=== PATIENT | male | born 1965 | race Caucasian/White ===

== ENCOUNTER 2018-08-24 21:23 | Inpatient (IN) | payer OTHER ==
[~2018-08-24] VITALS: Ht 167.6 cm; Wt 115.2 kg
--- NOTE | ~2018-08-24 | O ---
[facility] [place] [address] OPERATIVE REPORT Name: REINA ANDERS ALAN Room #: 354-P ADM IN M.R.#: [id number] Admission: 08/25/18 Attend Phys: Aaron Danielle MD Discharge: Date of : 61 Report #: [id number] THIS REPORT FOR: //name// CC: Aaron Hogan DATE OF SERVICE: 08/30/2018 PREOPERATIVE DIAGNOSIS: Deep cervical neck abscess. POSTOPERATIVE DIAGNOSIS: Deep cervical neck abscess. PROCEDURE: Incision, drainage and debridement of left neck abscess. SURGEON: Josh Hogan M.D. ANESTHESIA: Monitored anesthesia care, 14 mL of 1% with 1:100,000 epinephrine. FINDINGS: CEDRIC drains were with minimal purulence present. Only slight amount of devitalized tissue was noted mostly in the subplatysmal plane and a small piece over the SCM. There is no purulence noted within the abscess cavity themselves and there was good evidence of granulation tissue forming over strap muscles and superficial portions of the wound. TECHNIQUE: After obtaining consent, he was brought back to the operative suite. Appropriate time-out was performed. Local monitored anesthesia care was then obtained. The above local anesthetic was infiltrated subcutaneously and then submuscularly during the case for patient tolerance. After prepping and draping the neck sterilely, I first removed the sutures and clipped the drain stitches and removed the drains. The wound easily opened with the application of a hemostat. Using a large curved hemostat, the submandibular space medial to the submandibular gland was probed both with the hemostat and finger and then I followed down the tracheoesophageal groove inferiorly. I also explored the previous pockets noted more so the platysmal area inferiorly and laterally. No new pockets were appreciated. A slightly bleeding tissue was encountered in these areas as well. There was some devitalized tissue over the above-mentioned areas, which was trimmed out and back to bleeding tissue with sharp scissors. I then thoroughly irrigated the wound with 500 mL of bacitracin. I reinspected the area for any further devitalized tissue, none was found. Having felt we had adequately explored the neck area, I then placed a 1-inch Marco, layering it up underneath the submandibular gland superiorly and down the tracheoesophageal groove inferiorly and rolled it back laterally and superficially subplatysmal bring it out medially. This was secured to the skin with two 4-0 nylon sutures. I then closed the subplatysmal layer with simple interrupted 3-0 chromic suture somewhat loosely and then closed the skin with a 4-0 black nylon simple [address] [address] OPERATIVE REPORT Name: REINA ANDERS Room #: 354-P [facility] IN M.R.#: [id number] Admission: 08/25/18 Attend Phys: Aaron Danielle MD Discharge: Date of : 61 Report #: [id number] interrupted. Antibiotic ointment was applied to the skin followed by ABD and a dressing. He was then taken to recovery in stable condition. Estimated blood loss was about 5 mL. By: 1221 [id number] Josh Hogan MD /nt
[~2018-08-24 21:23] MED LIST: KEFLEX500 M1 PO
[2018-08-24 21:27] VITALS: BP 151/70
[2018-08-24] MEDS ORDERED: NEURONTIN 400400 M1 PO (21:46)
[2018-08-24] MEDS ORDERED: IBUPROFEN 800800 M1 PO (21:47)
[2018-08-24] MEDS ORDERED: ZOCOR40 MG PO (21:48)
[2018-08-24 21:51] LABS: HEMATOCRIT 48.8 % (42.0-52.0); HEMOGLOBIN 17.1 gm/dL (14.0-18.0); MCH 35.2 pg (26.0-34.0); MCV 100.5 fL (80.0-100.0); PLATELET COUNT 242 thou/uL (150-400); RBC 4.85 mil/uL (4.50-6.00); RDW 12.7 % (10.5-14.5); WBC 24.1 thou/uL (4.0-11.0)
[2018-08-24 21:58] LABS: CALCIUM 9.1 mg/dL (8.5-10.1); POTASSIUM 3.6 mmol/L (3.5-5.1)
[2018-08-25] VITALS (24 sets, daily range): BP systolic 117–154; BP diastolic 53–83
[2018-08-25] MEDS ORDERED: NORCO 10-325 T1 EACH PO (04:30)
[2018-08-25] MEDS ORDERED: OXYCONTIN10 M1 PO (04:32)
[2018-08-25] MEDS ORDERED: ACCUPRIL5 MG PO (04:35)
--- NOTE | 2018-08-25 07:00 | NUR ---
ARRIVED IN ICU FROM ER AT APPROX 0300. PRIOR TO ARRIVAL, ORDERS RECEIVED FROM DR. KERNS, WHO SAW PT IN ER-ORDERS ENTERED AND SEE [facility] MESSAGE REGARDING OTHER GUIDELINES FOR PT'S CARE/SAFETY. PT C/O OF 10/10 PAIN IN HIS NECK AND BACK UPON ARRIVAL IN THE ICU. NO PAIN MEDICATION HAD BEEN ORDERED. ANISH CUBA NP CONTACTED FOR AN ORDER FOR PAIN MEDICATION. ORDER RECEIVED FOR 50 MCG FENTANYL Q4H PRN. ONE DOSE GIVEN TO PT, PT REPLIED 'KIND OF' WHEN ASKED IF FENTANYL WAS EFFECTIVE AND DRIFTED OFF TO SLEEP. PT WOKE 15 MINUTES LATER, C/O 10/10 PAIN AGAIN AND SAID HE DID NOT REMEMBER THE PAIN MEDICATION WORKING. HAND BOX FOLDER CALLED AGAIN TO ASK FOR CHANGE IN PAIN MEDICATION. MORPHINE 4 MG Q4H PRN ORDERED AND FENTANYL D/C. ONE DOSE OF MORPHINE GIVEN AT 0500. PT REPORTED 8/10 PAIN 15 MINUTES AFTER ADMIN AND THEN FELL ASLEEP. PT SLEPT UNTIL LAB CAME TO DRAW LABS SHORTLY BEFORE SHIFT CHANGE. ASSESSMENT AND VITALS DOCUMENTED. WILL CONTINUE TO MONITOR.
[2018-08-25 07:12] LABS: HEMATOCRIT 48.1 % (42.0-52.0); HEMOGLOBIN 16.2 gm/dL (14.0-18.0); MCHC 33.6 g/dL (28.0-37.0); MCV 101.1 fL (80.0-100.0); RBC 4.76 mil/uL (4.50-6.00); RDW 12.7 % (10.5-14.5)
[2018-08-25 07:20] LABS: CALCIUM 8.8 mg/dL (8.5-10.1); CREATININE 0.8 mg/dL (0.7-1.3); POTASSIUM 4.3 mmol/L (3.5-5.1)
[2018-08-25 07:26] LABS: WBC 23.5 thou/uL (4.0-11.0)
--- NOTE | 2018-08-25 08:38 | NUR ---
Assess due to RD consult received. Admitted with jaw swelling, throat pain, supraglottitis. Started on abx, dexamethasone, IVF. Hx dm, htn, hld and extreme class III obesity with BMI 41. +tobacco use. Currently npo status. BG elevated >200. Follow for timely diet advance, recommend carb controlled diet. Otherwise low nutrition risk
--- NOTE | 2018-08-25 17:46 | HC ---
[facility] [place] [address] CONSULTATION Name: REINA ANDERS Room #: 245-P [facility] IN M.R.#: [id number] Admission: 08/25/18 Attend Phys: Aaron Danielle MD Discharge: Date of : 61 Report #: [id number] THIS REPORT FOR: //name// CC: Aaron Hogan DATE OF SERVICE: 08/25/2018 REASON FOR CONSULTATION: Swelling and throat. HISTORY OF PRESENT ILLNESS: The patient is a 52-year-old male who presented to emergency room on 08/24 in the evening with a complaint of increasing sore throat. The patient originally had noted that he had a jagged right mandibular tooth that irritated his tongue late last week or early this week and caused a sore on his tongue. He noted that, that is not worsened, but has not healed. Early this week, he believes on Wednesday, he went to urgent care because he was developing a sore throat and was diagnosed with a "sinus infection and thrush." He was given an unknown type of antibiotic. The patient has taken the medication, but he has noted that the soreness in the throat has increased and he has noted hoarseness or raspiness to his voice developing within the last 24 hours. Sore throat is at the point where it is difficult for him to swallow, although not impossible. He may or may not have had a fever or chills in the last day. The patient denied either digestive or pulmonary complaints. While in the emergency room, he was evaluated. CT scan of the neck was performed. There was concern of a possible abscess and/or swelling on the CT scan. We were consulted. I reviewed the CAT scans myself and with Dr. Devon Hughes from radiology the phone. Since being in the emergency room, the patient has received a dose of IV antibiotics and IV steroids. PAST MEDICAL HISTORY: Notable for morbid obesity, history of sleep apnea, for which he does not wear a device. He has a history of essential hypertension, hypercholesterolemia. He has had multiple back surgeries and has chronic back pain. MEDICATIONS: Include gabapentin, ibuprofen, simvastatin and ANJELICA inhibitor for kidney protection, OxyContin and Tylenol No. 3. ALLERGIES: He has no known allergies to medications. SOCIAL HISTORY: Negative for any use of tobacco products. REVIEW OF SYSTEMS: Negative for any other ENT complaints. No sinonasal complaints ear complaints or other neck complaints. PHYSICAL EXAMINATION: [address] [address] CONSULTATION Name: REINA ANDERS Room #: 245-P [facility] IN .R.#: [id number] Admission: 08/25/18 Attend Phys: Aaron Danielle MD Discharge: Date of : 61 Report #: [id number] GENERAL: He was examined in the ER suite. He had been noted to ambulate to the bathroom and back without difficulty. He is obese. He was sitting in the gurney. Voice is hoarse, but not hoarse. He is able to carry on a conversation without any dyspnea. VITAL SIGNS: He is mildly tachycardic. Blood pressure 151/70, temperature of 37.2. HEENT: Examination of the nares was unremarkable. There is no mucopurulence. Nasal mucosa without any erythema. Oral cavity shows a few missing teeth. There are no substantial lesions on the tongue. There is no swelling of the tongue. The floor of mouth is soft and without any edema. Soft palate appears unremarkable without any palatal edema. Posterior pharyngeal doll appear normal. Palpation of the neck reveals some generalized tenderness to the mid portion of the neck, slightly more on the left than the right. This generalized tenderness exists in area between hyoid and the mid thyroid cartilage and midline. There is no palpable lymphadenopathy, although it is difficult to address lymphadenopathy in this gentleman's thickened neck. There is no fluctuance. There is no subcutaneous emphysema. Flexible nasopharyngoscopy was performed after applying topical anesthesia to the right naris. The flexible scope was advanced back into the nares and nasopharynx, oropharynx and hypopharynx. Examination of the nares is as noted above. The nasopharynx is unremarkable. There is no erythema or edema noted. Immediate oropharyngeal mucosa was unremarkable. Within the hypopharynx, there is noted to be a very edematous epiglottis and the vallecula. There was moderate edema as well. This edema obscures some of the piriform sinuses on both sides and certainly the lateral pharyngeal doll are not well visualized. There was no erythema noted. The postcricoid area shows some mild edema; however, the glottis was visualized. Cords appear to be working normally. Most of the edema is localized to the preoperative glottic space; however, the base of tongue appeared unremarkable. There was no unilateral or asymmetric mass effect noted. The patient was able control of secretions well. Scope was withdrawn. It should be noted no ulcerations or masses were noted on examination. LABORATORY DATA: [place] [id number]. Cultures are presently pending. IMAGING DATA: I discussed the CT scan findings with Dr. Hughes as far as the presentation of the patient along with the physical exam findings. ASSESSMENT: History of upper airway infection with increasing swelling in the supraglottic region. I am most concerned that this may represent infectious supraglottitis. I find the presentation unusual for any type of an abscess formation and the location for possible abscess would be unusual. I recommended treating this initially supraglottitis with IV antibiotics, IV steroids, close watch of his airway with humidified air being applied. At this point, the [facility] [address] [place] [address] CONSULTATION Name: REINA ANDERS ALAN Room #: 245-P ADM IN .R.#: [id number] Admission: 08/25/18 Attend Phys: Aaron Danielle MD Discharge: Date of : 61 Report #: [id number] patient has good control of his airway. He is able to carry on a conversation without any dyspnea and there is a patency to his airway on direct visual examination. I explained these findings to the patient and my concerns. My recommendation is ICU evaluation. Continue the above treatment plan with reevaluation. If his presentation worsens as far as airway, he may require intubation and/or a surgical airway. I have discussed these findings with the patient that we need to see improvement over the next 24 hours. With this presentation. We will follow with hospitalist. We will control his general healthcare for diabetes, hypertension. I have discussed directly with the ICU nurse the need watch overdosing with pain medication and is aware of the issue with airway as well. <ELECTRONICALLY SIGNED> By: Josh Hogan MD 08/25/18 [id number] Josh Hogan MD /nt
--- NOTE | 2018-08-25 18:31 | NUR ---
PT ALERT AND ORIENTED X4. COMPLAINING OF NECK AND BACK PAIN TODAY. GIVEN MORPHINE X3 ORDERED. NOTED NECK SWELLING >LEFT THAN RIGHT. SLIGHTLY REDDENED AREA TO NECK WELL. SWELLING SLIGHTLY IMPROVED THIS EVENING. PT'S VOICE RASPY/HOARSE. FREQUENTLY COUGHING/CLEARING SECRETIONS. REMAINS NPO TODAY. DR KERNS HERE AND SCOPE DONE AT BEDSIDE. RECIEVING IV ABX AND IV STERIODS ORDERED. WEARING HUMIDIFIED O2 MASK. PT AT BEDSIDE AND ABLE TO SPEAK WITH DR MATTHEW AND SAUMYA. PT MORE COMFORTABLE SITTING UP TODAY. SITTING ON EDGE OF BED OR IN RECLINER TODAY. AMBULATING TO TOILET WITH STANDBY ASSISTANCE. UNABLE TO OBTAIN ACCURATE I&O, PT REFUSED TO VOID IN URINAL OR HAT. REFUSED SCD'S WELL. WILL CONTINUE TO MONITOR PT.
[2018-08-26] VITALS (21 sets, daily range): BP systolic 121–147; BP diastolic 55–81
[2018-08-26 05:24] LABS: HEMATOCRIT 46.7 % (42.0-52.0); HEMOGLOBIN 15.6 gm/dL (14.0-18.0); MCHC 33.5 g/dL (28.0-37.0); MCV 101.5 fL (80.0-100.0); RBC 4.6 mil/uL (4.50-6.00); RDW 12.6 % (10.5-14.5); WBC 22.9 thou/uL (4.0-11.0)
--- NOTE | 2018-08-26 07:00 | NUR ---
ASSUMED CARE OF PT AT 1900. PT'S SWELLING IN NECK HAS IMPROVED SOMEWHAT, BUT IS STILL FIRM AND TENDER TO TOUCH. PT C/O PAIN IN NECK AND BACK. MORPHINE GIVEN AND PT SLEPT WELL OVERNIGHT. PT WORE FACE MASK WITH FIO2 WHILE SLEEPING AND WOULD TAKE IT OFF INTERMITTENTLY WHEN AWAKE. O2 SAT DROPS AT TIMES WHEN SLEEPING D/T SLEEP APNEA. ENT TO REEVALUATE PT TODAY. WILL CONTINUE TO MONITOR.
--- NOTE | 2018-08-26 13:02 | NUR ---
ALERT AND ORIENTED, VITALS STABLE. UP IN THE CHAIR AND TOLERATING WELL. ADVANCED TO CLEAR LIQUIDS PER ENT. WILL CONTINUE TO MONITOR CLOSELY.
--- NOTE | 2018-08-26 15:33 | NUR ---
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 The pt's throat swelling has improved and he is able to participate in conversation. He is hoping to start liquid diet and move out of the ICU soon. His Dorota is at bedside today. She is disabled and uses a w/c for mobility. Her sister brought her to the hospital to visit as she is not able to drive. Cab/share a fare info provided to her. The pt does the driving for them both normally. His truck is in the parking lot and he plans to drive himself home at dc. The pt reports he is disabled from a back injury/surgery but is functionally indep in the home. He denies any dc needs or concerns at this time. He has insurance in place for scripts and followup care. CM role introduced. Will remain available should needs arise.
[2018-08-27 01:48] VITALS: BP 131/67
[2018-08-27 02:48] VITALS: BP 124/60
[2018-08-27 03:48] VITALS: BP 136/65
[2018-08-27 05:26] LABS: HEMATOCRIT 48.9 % (42.0-52.0); HEMOGLOBIN 16.4 gm/dL (14.0-18.0); MCH 33.7 pg (26.0-34.0); MCHC 33.5 g/dL (28.0-37.0); MCV 100.7 fL (80.0-100.0); RBC 4.86 mil/uL (4.50-6.00); RDW 12.6 % (10.5-14.5); WBC 20.7 thou/uL (4.0-11.0)
[2018-08-27 05:42] LABS: CALCIUM 8.5 mg/dL (8.5-10.1); CREATININE 0.6 mg/dL (0.7-1.3); POTASSIUM 4.5 mmol/L (3.5-5.1)
--- NOTE | 2018-08-27 06:32 | NUR ---
ASSUMED PT CARE AT 1900 WITH NO SIGN OF DISTRESS NOTED IN PT. PT IS ALERT AND ORIENTED. DENIES ANY NEEDS AT THIS TIME. PT IS STABLE. SWELLING TO NECK IS DECREASING. NURSING POC CONTINUES. SCHEDULED MEDS ADMINISTERED TO PT. PT PT TOLERATED PO INTAKE. DENIES ANY FURTHER NEEDS AT THIS TIME. PT IS STABLE.
[2018-08-27 06:50] VITALS: BP 140/64
--- NOTE | 2018-08-27 18:28 | NUR ---
ASSUMED CARE OF PATIENT AT 0700. PT/VITALS STABLE. COMPLAINS OF LEFT SIDED NECK PAIN WHICH IS RELIEVED WITH MORPHINE. TOLERATES ACTIVITY WELL. ASSESSMENT CHARTED. PATIENT UNDERWENT LEFT SIDED NECK SURGERY TODAY AND TOLERATED PROCEDURE WELL. PATIENT HAS TWO DRAINS IN PLACE WHICH ARE PINNED TO HIS GOWN. PATIENT RESTING COMFORTABLY IN BED. PATIENT'S AND SISTER IN LAW WERE AT THE BEDSIDE MOST OF THE DAY. BLOOD SUGARS CHECKED AC&HS AFTER SURGERY WITH MODERATE DOSE SLIDING SCALE. PATIENT AMBULATING TO THE TOILET IN THE ROOM WITH A STAND BY ASSIST. PLAN IS TO TREAT PATIENT WITH ABX AND STEROIDS. WILL CONTINUE TO MONITOR AND FOLLOW WITH POC.
[2018-08-28 05:13] LABS: HEMATOCRIT 47.6 % (42.0-52.0); MCH 33.9 pg (26.0-34.0); MCHC 33.6 g/dL (28.0-37.0); MCV 101.1 fL (80.0-100.0); RBC 4.7 mil/uL (4.50-6.00); RDW 12.4 % (10.5-14.5); WBC 17.2 thou/uL (4.0-11.0)
[2018-08-28 05:20] LABS: CREATININE 0.6 mg/dL (0.7-1.3); POTASSIUM 4.5 mmol/L (3.5-5.1)
--- NOTE | 2018-08-28 06:47 | NUR ---
ASSESSMENTS CHARTED. SINUS PHILLIP MAJORITY OF SHIFT HR IN THE 40'S TO 60'S. LUNGS COURSE ON FACE MASK WITH 5 LITERS BLEED IN. CLEAR LIQUID DIET, ACHS ON MODERATE SSI. UP TO TOLIET WITH STANDBY ASSIST. SURGICAL SITE LEFT NECK DRESSING CHANGED TWICE DURING SHIFT DUE TO DRAINAGE. 2 CEDRIC DRAINS. C/O PAIN ONCE DURING SHIFT.
[2018-08-28 13:20] VITALS: BP 134/101
[2018-08-28 14:19] VITALS: BP 138/64
[2018-08-28 15:20] VITALS: BP 134/64
--- NOTE | 2018-08-28 16:00 | NUR ---
ASSUMED CARE AT 0700. PT A&OX4. PT WAS ON FACEMASK AT 5L AT BEGINNING OF SHIFT. PT STATED THAT HE DID NOT THINK HE NEEDED IT ANY LONGER AND THAT HE DOES NOT WEAR O2 AT HOME. MASK REMOVED AND PT REMAINS AT OR ABOVE 94% OR GREATER ON ROOM AIR. PT DOES NEED 2L NC WHEN SLEEPING AT THIS TIME. PT GETS UP TO TOLIET IN ROOM WITH ONE ASSIST DUE TO MULTIPLE LINES. PT HAS 2 CEDRIC DRAINS FROM L NECK INCISION. 20CC OF SEROSANG DRAINAGE EMPTIED. DRESSING CHANGE TO LEFT NECK DONE. PT WAS ON CLEAR LIQUIDS THIS AM AND WAS REQUESTING TO EAT SOLID FOOD. PHYSICIAN TOLD PT THAT HE NEEDED TO TRY SOME LIQUIDS FIRST BEFORE GOING TO SOLIDS. PT UNHAPPY WITH THIS. PHYSICIAN AND PT AGREED THAT PT WAS TO DRINK ONE GLUCERNA SHAKE AND IF HE WAS ABLE TO TOLERATE WITH OUT GETTING NAUSEATED THAN THE PT COULD ADVANCE TO SOLIDS. PT DRANK GLUCERNA SHAKE WITHOUT ANY DIFFICULITIES. PT THEN HAD BREAKFAST FOOD THAT BROUGHT TO HIM. PT COMPLAINED OF NECK PAIN X1 AND WAS GIVEN IV PAIN MEDICATION ORDERED. PT FELL ASLEEP AFTER PAIN MEDICATION GIVEN. ORDERS RECEIVED FOR TRANFER TO [facility] WHEN ROOM AVAILABLE.
--- NOTE | 2018-08-28 16:42 | NUR ---
ASSUMED CARE OF PT AT 1300 THIS SHIFT, PT HAS BEEN COOPERATIVE, HAS DENIED PAIN. PT HAS HAD VISITORS IN ROOM, EDUCATION WAS PROVIDED. PLAN OF CARE IS TO CONTINUE TO MONITOR CLOSELY AND TRANSFER PT OUT OF ICU. REPORT CALLED IN TO 3WEST RN.
[2018-08-28 19:00] VITALS: BP 158/70
--- NOTE | 2018-08-28 19:21 | NUR ---
ADMITTED PATIENT TO UNIT FROM ICU. HE IS ALERT ORIENTED X4. DOES NOT SEEM TO BE IN PAIN. NECK INCISION NOTED TO HAVE SOME DRAINAGE. ORIENTED TO ROOM AND TO CALL LIGHT. WILL CONT WITH PLAN OF CARE.
[2018-08-28 23:55] VITALS: BP 135/61
--- NOTE | 2018-08-29 03:36 | NUR ---
resting quietly in bed at this time.continues on iv antibiotics. drains to neck area need frequent collapsing to regain suction. small amounts of sero-sang fluids drained careplan reviewed. pain controlled with morphine iv. cooperative and calls appropriately
[2018-08-29 08:09] VITALS: BP 125/70
[2018-08-29 08:10] LABS: HEMATOCRIT 46.4 % (42.0-52.0); HEMOGLOBIN 15.7 gm/dL (14.0-18.0); MCH 33.4 pg (26.0-34.0); MCHC 33.8 g/dL (28.0-37.0); MCV 98.6 fL (80.0-100.0); RBC 4.71 mil/uL (4.50-6.00); RDW 12.5 % (10.5-14.5); WBC 11.8 thou/uL (4.0-11.0)
[2018-08-29 08:24] LABS: CALCIUM 8.1 mg/dL (8.5-10.1); CREATININE 0.6 mg/dL (0.7-1.3)
--- NOTE | 2018-08-29 10:39 | NUR ---
SW reviewed chart and spoke with nursing. Pt was transferred to 3W from ICU and is progressing towards goals for discharge. Plan is for pt to d/c home when medically stable. SW is following to assist as needed with discharge planning.
[2018-08-29 12:01] VITALS: BP 123/62
[2018-08-29 17:21] VITALS: BP 128/70
--- NOTE | 2018-08-29 17:23 | NUR ---
NEW DRESSING TO SURGICAL INCISION TO NECK. PATIENT DENIES PAIN AT THIS TIME. RESPIRAITONS NON LABORED. UP WITH STAND BY ASSIST. STEADY GAIT. WILL CONT WITH PLAN OF CARE.
[2018-08-29 19:34] VITALS: BP 153/84
--- NOTE | 2018-08-30 02:50 | NUR ---
DURING IV FLUID CHANGE, DRAINED 30ML FROM LEFT CEDRIC, AND 35ML FROM R CEDRIC. SEROANG FLUID. IT ALSO LOOKS LIKE IT IS OILY. SWELLING IS REDUCING IN THE NECK AREA. APPLIED MUPIROCIN TO WOUND AREA. PT ONLY CALLED FOR ONE DOSE OF IV PAIN MEDICATION. PT UP FROM CHAIR TO BED. FOLLOWING POC WITH IVPB ANTIBIOTICS AND FLUIDS. PT RUNS PHILLIP ON TELE MONITOR. VSS AND PT AFEBRILE. HOURLY ROUNDING AND CALL LIGHT WITHIN REACH.
[2018-08-30 04:12] VITALS: BP 145/83
--- NOTE | 2018-08-30 05:20 | NUR ---
AT AM LAB RUN, PT STATES, "DOCTOR TOLD ME I DID NOT HAVE TO HAVE ANYMORE BLOOD DRAWN FOR LABS." THE GRINDER SET UP OPERATOR JIG TOLD ME, i SAID I WILL DOCUMENT THIS AND THE PATIENT CAN DISCUSS THIS WITH DOCTOR IN THE AM.
[2018-08-30 07:40] VITALS: BP 138/73
--- NOTE | 2018-08-30 10:07 | NUR ---
PT OFF UNBIT TO OT AT 0930 TODAY.
[2018-08-30 10:40] LABS: MCH 34.3 pg (26.0-34.0); MCHC 34.9 g/dL (28.0-37.0); MCV 98.2 fL (80.0-100.0); RBC 5.19 mil/uL (4.50-6.00); RDW 12.5 % (10.5-14.5); WBC 12.5 thou/uL (4.0-11.0)
[2018-08-30 10:48] LABS: HEMOGLOBIN 17.8 gm/dL (14.0-18.0)
[2018-08-30 10:51] LABS: CREATININE 0.6 mg/dL (0.7-1.3); POTASSIUM 3.8 mmol/L (3.5-5.1)
--- NOTE | 2018-08-30 11:14 | O ---
[facility] [place] [address] OPERATIVE REPORT Name: REINA ANDERS ALAN Room #: 354-P [facility] IN M.R.#: [id number] Admission: 08/25/18 Attend Phys: Aaron Danielle MD Discharge: Date of : 61 Report #: [id number] THIS REPORT FOR: //name// CC: Mike Marx DATE OF SERVICE: 08/27/2018 PREOPERATIVE DIAGNOSIS: Left neck abscess. POSTOPERATIVE DIAGNOSIS: Left neck abscess. PROCEDURE: Incision and drainage of deep left neck abscess. SURGEONS: Josh Hogan MD; Chai Melchor. ANESTHESIA: A 14 mL of 1% Xylocaine, 1:100,000 epinephrine, monitored anesthesia care. FINDINGS: Moderate erythema noted of the skin on the left neck with fullness, substantial loculation of purulent fluid noted in subcutaneous, subplatysmal and deep neck structures. Pocket was found to run both superomedial of the left submandibular gland as well as posterolateral. This also was continued down along the tracheal groove inferiorly at the level of the thyroid and crossed underneath the sternothyroid muscle to midline. Laterally, this is a bit more superficial. There was devitalized muscle and fat noted, which was removed. TECHNIQUE: After obtaining consent, he was brought to the operating suite, appropriate time out was performed. Monitored anesthesia care was performed. He was placed in a slight head up position. The neck was prepped and draped in usual sterile fashion. Above local anesthetic was infiltrated subcutaneously. Using a #15 blade, a sharp incision was made through the skin and through the subcutaneous tissue. Subcutaneous tissue was noted to be very edematous. Hemostasis was maintained throughout the case, mostly with electrocautery. Upon entering up against the platysma, came across to pocket of purulence. Cultures were obtained. We went through the platysma, immediately came across more purulence and divided the platysma. Then, using combination of finger exploration along with hemostats, found multiple loculations in the area as mentioned above. Most of these pockets were fully explored digitally and then were connected one to another to create a more giant cavity. After fully exploring the area, substantial antibiotic irrigation was used. At that point, we did notice some devitalized fat and muscle. This was trimmed away. I did find healthy SCM muscle and there was a viable strap muscle as well. After thoroughly irrigating, CEDRIC drains were placed medial and laterally and brought out the incision. Skin was then closed with simple interrupted 3-[address] [address] OPERATIVE REPORT Name: REINA ANDERS ALAN Room #: 354-P ADM IN M.R.#: [id number] Admission: 08/25/18 Attend Phys: Aaron Danielle MD Discharge: Date of : 61 Report #: [id number] Drains were held in place in a similar fashion. Antibiotic ointment and a dressing was placed over the wound. At that point, he was taken back to recovery in stable condition. ESTIMATED BLOOD LOSS: Approximately 100 mL. <ELECTRONICALLY SIGNED> By: Josh Hogan MD 08/30/18 1114 [id number] Josh Hogan MD /nt
--- NOTE | 2018-08-30 13:23 | NUR ---
SW reviewed chart and spoke with nursing and attending physician. Pt went to OR this morning for I&D of abscess. Discharge home is anticipated for tomorrow. KATHRYN is following to assist as needed with discharge planning.
--- NOTE | 2018-08-30 14:03 | NUR ---
PT RETURN FROM OR AT 1350 WITH NECK DRESSING AND CHIDI DRAIN IN PLACE. PLACE CAPNOGRAPHY ON PT. WILL CONTINUE TO ASSESS.
[2018-08-30 14:45] VITALS: BP 132/72
[2018-08-30 15:30] VITALS: BP 129/82
--- NOTE | 2018-08-30 18:18 | NUR ---
PT REFUSE KENJI HOSE AND ONLY WISH TO HAVE SCDS. PT ALSO REFUSE INSULIN THIS EVENING. PT UP TO VOID SEVERAL TIMES AND TOLERATING PO FLUIDS AND FOOD.
[2018-08-30 19:20] VITALS: BP 118/57
[2018-08-31 04:30] VITALS: BP 143/86
--- NOTE | 2018-08-31 04:38 | NUR ---
SURGERY WAS AGAIN PERFORMED ON PT TODAY. CEDRIC DRAINS REMOVED AND PREMROSE DRAIN IS NOW INSERTED. NEW DRAIN IS DRAINING ON 4X4'S, REINFORCED WITH AN ABD, AND ATTACHED WITH MEPLEX TAPE AND REPLACED 3X DURING SHIFT. PT STATED DURING EVENING ASSESSMENT HE IS NOT HAPPY HE IS HAVING TO STAY 2 MORE DAYS, AND IS WANTING TO DC TOMORROW WITH ORAL ANTIBIOTICS. FOLLOWING POC WITH IVPB ANTIBIOTICS AND FLUIDS. VSS AND NO FEVER. PT UP TO BATHROOM WITH STANDBY ASSIST. PT ALSO STATES "HE DOES NOT LIKE THE FOOD HERE." OFFERED SANDWICH TRAY, YOGURT, AND HE SAID NO. HOURLY ROUNDING.
[2018-08-31 05:37] LABS: ABSOLUTE NEUTROPHILS 8.6 thou/uL (1.4-8.2); BASOPHILS 1.1 % (0.0-2.0); EOSINOPHILS 3.4 % (0.0-3.0); HEMATOCRIT 49.6 % (42.0-52.0); HEMOGLOBIN 17.2 gm/dL (14.0-18.0); LYMPHOCYTES 26.4 % (24.0-44.0); MCH 33.8 pg (26.0-34.0); MCHC 34.6 g/dL (28.0-37.0); MCV 97.7 fL (80.0-100.0); MONOCYTES 5.8 % (1.0-8.0); PLATELET COUNT 222 thou/uL (150-400); POLYS 63.3 % (36.0-66.0); RBC 5.08 mil/uL (4.50-6.00); RDW 12.5 % (10.5-14.5); WBC 13.7 thou/uL (4.0-11.0)
[2018-08-31 05:54] LABS: ALBUMIN 1.9 g/dL (3.4-5.0); CREATININE 0.5 mg/dL (0.7-1.3); POTASSIUM 3.8 mmol/L (3.5-5.1); TOTAL PROTEIN 5.8 g/dL (6.4-8.2)
[2018-08-31 07:25] VITALS: BP 107/67
[2018-08-31 12:00] VITALS: BP 148/87
--- NOTE | 2018-08-31 13:05 | HC ---
[facility] [place] [address] CONSULTATION Name: REINA ANDERS Room #: 354-P ADM IN M.R.#: [id number] Admission: 08/25/18 Attend Phys: Aaron Danielle MD Discharge: Date of : 61 Report #: [id number] THIS REPORT FOR: //name// CC: Aaron Hogan DATE OF SERVICE: 08/30/2018 REASON FOR CONSULTATION: I was asked to evaluate concerning neck abscess. HISTORY OF PRESENT ILLNESS: The patient is a 52-year-old obese gentleman with underlying diabetes, hypertension, who presented to the Urgent Care last week with sore throat, some sinus congestion and rhinorrhea. He noticed the week prior to this, he had had fractured tooth and had injured his tongue on the right. Tongue otherwise had healed. During his visit to the Urgent Care, he was placed on prednisone, Z-DUGLAS and clotrimazole for suspected thrush. Subsequently, he had increased pain in his neck along with odynophagia, dysphagia and some dyspnea. 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 This developed abscess cavity and he was taken to Surgery on 08/27/2018 for surgical debridement. Cultures from this debridement are currently negative so far. Gram stain has shown no WBCs or bacteria. It is noted that the cultures were obtained on broad antibiotic coverage with Unasyn. He had a white count of 24,000 and low grade fever, which has resolved. His white count is now down to 12. Overall, he feels better after a second debridement today. There was minimal drainage identified. He is able to swallow now with minimal discomfort. He denies any ongoing fevers. No cough or sputum production. Minimal sinus congestion. Imaging studies of his teeth showed no evidence of apical abscess. The patient is a smoker with no significant alcohol intake. PAST MEDICAL HISTORY: Diabetes, hypertension, hyperlipidemia, morbid obesity, low back surgery with nerve stimulator placed. ALLERGIES: None known. MEDICATIONS: As noted on his MAR including Unasyn. FAMILY HISTORY: Noncontributory. SOCIAL HISTORY: As noted above. REVIEW OF SYSTEMS: Ten-point review was negative other than what is described above. PHYSICAL EXAMINATION: [address] [address] CONSULTATION Name: REINA ANDERS Room #: 354-P [facility] IN .R.#: [id number] Admission: 08/25/18 Attend Phys: Aaron Danielle MD Discharge: Date of : 61 Report #: [id number] VITAL SIGNS: Afebrile and hemodynamically stable. Blood pressure was 129/82, heart rate 67, O2 saturation normal on room air. GENERAL: He was obese. SKIN: Unremarkable other than his neck examination. NECK: No palpable adenopathy. EYES: Without scleral icterus or conjunctivitis. MOUTH: Poor dentition with dental caries, multiple missing teeth. No gingivitis of significance or evidence of tenderness to the mandible. The floor of the mouth was soft. No masses to his tongue. Posterior oropharynx was without erythema or ulceration. He did have some edema in this region. NECK: Supple. He had fullness in the left neck with incision, which was sutured and a Marco drain in place. Moderate tenderness throughout this region. LUNGS: Clear. HEART: Regular, without murmur, gallop or rub. ABDOMEN: Soft, nontender, no hepatosplenomegaly or mass. EXTREMITIES: Without edema, cyanosis or clubbing. NEUROLOGIC: Cranial nerves intact. Strength in his upper and lower extremities normal with sensation intact. Mood was normal. LABORATORY STUDIES: CT scan as noted above with abscess in the left anterior neck. There is also swelling of the submandibular gland as well as the supraglottic space. Hemoglobin 17.8, white count 12.5, platelet count 199,000. Sodium 137, potassium 3.8, bicarbonate 31, creatinine 0.6. IMPRESSION: Left neck abscess, so far culture negative with supraglottitis, still possibility of dental source. I doubt this is from his submandibular gland, specifically due to all the previous upper respiratory tract infection symptoms. Source would include polymicrobial organisms, Streptococci, possible Haemophilus or Neisseria or Actinomyces. RECOMMENDATION: While awaiting cultures, we will continue Unasyn tonight. Reevaluate tomorrow and if improved with adequate swallowing and decreased inflammation, we will consider switching to oral antibiotic therapy. At that time, we will arrange outpatient therapy and followup. We will also obtain liver function tests and repeat CBC. <ELECTRONICALLY SIGNED> By: Gopi Valiente MD 08/31/18 1305 [id number] Gopi Valiente MD /nt
--- NOTE | 2018-08-31 13:59 | NUR ---
SW reviewed chart and spoke with nursing and attending physician. Awaiting recommendation from ID At this time. Per chart, recommendation made for pt to be on PO abx for 24 hours pror to discharge. Plan is for pt to d/c home when medically stable. SW is following to assist as needed with discharge planning.
--- NOTE | 2018-08-31 14:27 | NUR ---
As [employer] nursing education specialist, I have reviewed Jen Hoyt's assessments and charting and agree.
--- NOTE | 2018-08-31 14:58 | NUR ---
ASSUMED PATIENT CARE AT 0715. A&OX4. NO COMPLAINTS OF PAIN. PATIENT HAVING NO ISSUES SWALLOWING. PATIENT WAS WANTING TO LEAVE TODAY AND EVEN STATED THEY WOULD LEAVE AMA IF NOT DISCHARGED. THE SURGEON DISCUSSED PLAN WITH PATIENT AND SPOUSE. THE PATIENT SEEMS TO BE OK WITH STAYING TONIGHT AND RE-EVALUATING DISCHARGE TOMORROW. ABLE TO MAKE NEEDS KNOWN. HOURLY ROUNDING TO CHECK NEEDS.
[2018-08-31 16:50] VITALS: BP 129/65
[2018-08-31 19:40] VITALS: BP 125/75
[2018-09-01 03:45] VITALS: BP 116/63
--- NOTE | 2018-09-01 04:04 | NUR ---
PATIENT IS PROGRESSING IN HIS CARE PLAN. VITAL SIGNS STABLE WITH PATIENT HAVING NO COMPLAINTS OF PAIN OR NAUSEA. FULLY ORIENTED, PATIENT WAS ABLE TO CALL APPROPRIATELY FOR NEEDS AND PARTICIPATE IN CARE PLAN. BREATHING STABLE ON ROOM AIR EVIDENCED BY SPOT OXYGENATION CHECKS IN ACCEPTABLE RANGE. WOUND DRESSING CHANGED PER ORDER WITH [facility] DRAIN PUTTING OUT MILD OUTPUT. SUTURES LOOK C/D/I. PATIENT WAS ABLE TO AMBULATE TO RESTROOM MULTIPLE TIMES WITH ASSISTANCE INCIDENT FREE. HE IS ANXIOUS FOR EARLY DISCHARGE AND HAS STATED THAT HE MAY LEAVE IF NOT PROPERLY DISCHARGED EARLY ENOUGH.
[2018-09-01 07:37] VITALS: BP 129/78
[2018-09-01] MEDS ORDERED: NORCO 10-325 T1 EACH PO (10:03)
[2018-09-01] MEDS ORDERED: MUPIROCIN22 GM TOP (10:04)
[2018-09-01] MEDS ORDERED: AUGMENTIN 875-1 EACH PO (10:05)
[2018-09-01 10:35] VITALS: BP 129/78
--- NOTE | 2018-09-01 11:29 | NUR ---
ASSUMED PATIENT CARE AT 0715. A&OX4. NO COMPLAINTS OF PAIN. DRESSING CHANGED THIS MORNING. CLEARED FOR DISCHARGE BY SURGEON AND HOSPITALIST. SCRIPTS GIVEN. DRESSING CHANGE ORDERS DISCUSSED. HOME HEALTH ORDERED. PATIENT VERBALIZES UNDERSTANDING. IV'S DC'D.
--- NOTE | 2018-09-01 13:20 | NUR ---
DISCHARGE NOTE: KATHRYN reviewed chart and spoke with nursing and attending physician. Pt is medically stable for discharge home today. Pt has orders for HH services for drain care. KATHRNY met with pt at bedside to provide update and discuss discharge plan. Pt is agreeable with HH services and has not used HH in the past. Options provided to pt. No preference voiced. KATHRYN confirmed pt's home address and phone number. Pt's PCP is Dr. Mike Smith. Pt drove himself to the hospital and will drive home. KATHRYN sent referral to [facility] and notified liaison. Liaison onsite this morning and states they are able to accept pt on service. KATHRYN faxed final discharge orders/summary to [facility]. Pt already left. [facility] to contact pt tomorrow to arrange first HH visit. No additional SW needs identified at this time, but is available to assist should needs arise.
== END 2018-09-01 11:37 | disposition home health service (06) | DRG 853 ==
LOC: ER 21:23 → ICU 08-25 00:19 → 3W 08-25 00:19 → EROBS 08-25 00:19 → ICU 08-25 02:59 → 3W 08-28 14:52
PROVIDERS: Hospitalist; Nurse Practitioner Family; Otolaryngology; Student in an Organized Health Care Education/Training Program; ADMIT Hospitalist
PROC: 0J950ZZ Drainage of Left Neck Subcutaneous Tissue and Fascia, Open Approach (ICD-10-PCS; principal; 2018-08-27)
PROC: 0KB30ZZ Excision of Left Neck Muscle, Open Approach (ICD-10-PCS; 2018-08-30)
DX: A41.9 Sepsis, unspecified organism (principal); N17.0 Acute kidney failure with tubular necrosis; L02.11 Cutaneous abscess of neck; K12.2 Cellulitis and abscess of mouth; Z68.41 Body mass index [BMI] 40.0-44.9, adult; J04.30 Supraglottitis, unspecified, without obstruction; E66.01 Morbid (severe) obesity due to excess calories; I10 Essential (primary) hypertension; E78.00 Pure hypercholesterolemia, unspecified; G89.29 Other chronic pain; M54.9 Dorsalgia, unspecified; E78.5 Hyperlipidemia, unspecified; E11.9 Type 2 diabetes mellitus without complications; F17.210 Nicotine dependence, cigarettes, uncomplicated
CPT/HCPCS: 10078; 10779; 10879; 50010; 50101; 50386; 50398; 51412; 56527; 62110; 62850; 70005

== ENCOUNTER 2018-11-05 14:15 | Emergency (ER) | payer OTHER ==
[~2018-11-05] VITALS: Ht 188 cm; Wt 104.3 kg
[~2018-11-05 14:15] MED LIST changes: +ACCUPRIL5 MG PO; +AUGMENTIN 875-1 EACH PO; +IBUPROFEN 800800 M1 PO; +MUPIROCIN22 GM TOP; +NEURONTIN 400400 M1 PO; +NORCO 10-325 T1 EACH PO; +OXYCONTIN10 M1 PO; +ZOCOR40 MG PO
[2018-11-05 14:23] VITALS: BP 63/31
[2018-11-05 14:42] LABS: BE(vivo) -3.4 mmol/L (-2 to +3); HCO3 20.3 mmol/L (22.0-26.0); PCO2 33.5 mmHg (35.0-45.0); PO2 65.6 mmHg (80.0-100.0); sO2 93.2 % (92.0-98.0)
[2018-11-05 14:54] LABS: ABSOLUTE NEUTROPHILS 11.5 thou/uL (1.4-8.2); BASOPHILS 0.4 % (0.0-2.0); EOSINOPHILS 0.9 % (0.0-3.0); HEMATOCRIT 51.4 % (42.0-52.0); HEMOGLOBIN 17.6 gm/dL (14.0-18.0); LYMPHOCYTES 2.9 % (24.0-44.0); MCH 33.4 pg (26.0-34.0); MCHC 34.2 g/dL (28.0-37.0); MCV 97.6 fL (80.0-100.0); MONOCYTES 4.2 % (1.0-8.0); PLATELET COUNT 138 thou/uL (150-400); POLYS 91.6 % (36.0-66.0); RBC 5.26 mil/uL (4.50-6.00); RDW 13.8 % (10.5-14.5); WBC 12.6 thou/uL (4.0-11.0)
[2018-11-05 15:09] LABS: APTT 33.1 Seconds (24.5-32.8); INR 1.1
--- NOTE | 2018-11-05 15:11 | NUR ---
2L NS INFUSING 1445 1L D10 STARTED 1511 1425: GLUCAGON; GLUCOSE JELLY
[2018-11-05 15:21] LABS: ALBUMIN 2.4 g/dL (3.4-5.0); ANION GAP 15 mmol/L (7-16); BUN 87 mg/dL (7-18); CALCIUM 8.7 mg/dL (8.5-10.1); CHLORIDE 96 mmol/L (98-107); CO2 24 mmol/L (21-32); CREATININE 5.5 mg/dL (0.7-1.3); MAGNESIUM 2.4 mg/dL (1.8-2.4); SGOT 77 U/L (15-37); SGPT 46 U/L (30-65); SODIUM 135 mmol/L (136-145); TOTAL PROTEIN 7.9 g/dL (6.4-8.2); TROPONIN-I <0.06 ng/mL (<0.06)
[2018-11-05 15:23] LABS: GLUCOSE 34 mg/dL (74-106)
[2018-11-05 16:34] VITALS: BP 84/56
[2018-11-05 17:09] LABS: URINE BILIRUBIN 1+ (Negative); URINE BLOOD 3+ (Negative); URINE CLARITY CLEAR; URINE COLOR YELLOW; URINE GLUCOSE-RANDOM* NEGATIVE (Negative); URINE KETONES NEGATIVE (Negative); URINE NITRITE-REFLEX NEGATIVE (Negative); URINE PROTEIN (DIPSTICK) 1+ (Negative); URINE SPECIFIC GRAVITY 1.015 (1.005-1.035)
[2018-11-05 17:14] LABS: ICTOTEST (BILI CONFIRMATORY) Positive (Negative); URINE LEUKOCYTES-REFLEX 2+ (Negative)
[2018-11-05 17:15] LABS: AMP/METHAMP POSITIVE (Negative); BARBITURATES Negative (Negative); BENZODIAZEPINES Negative (Negative); COCAINE Negative (Negative); METHADONE Negative (Negative); OPIATES Negative (Negative); PCP Negative (Negative)
[2018-11-05 17:27] LABS: BACTERIA-REFLEX >30 Many /HPF (None Seen); HYALINE CASTS 0-3 Few /LPF (None Seen); SQUAMOUS None Seen /LPF (0-3); URINE WBC-REFLEX 6-15 Few /HPF (0-5)
[2018-11-05 17:28] LABS: CRYSTALS None Seen /LPF (None Seen); URINE RBC 3-10 Few /HPF (0-2)
--- NOTE | 2018-11-05 17:36 | NUR ---
CONSULTED TO PLACE A CENTRAL LINE FOR A PATIENT NEEDING ADDITIONAL ACCESS. ORDER AND CONSENT NOTED. THE PROCEDURE WELL RISKS AND BENIFITS AND DISCUSED WITH HIS DPOA. A #6F TRIPLE LUMEN POWER INJECTABLE JACC CENTRAL LINE WAS PLACED PER POLICY AFTER A BEDSIDE TIMEOUT WAS COMPLETED. THE JACC WAS 25CM AND ADVANCED WITHOUT DIFFICULTY TO 7CM EXTERNAL. A STAT CHEST XRAY WAS ORDERED FOR CONFIRMATION
--- NOTE | 2018-11-05 19:19 | EKG ---
[place] [address] [facility] [place] [address] ELECTROCARDIOGRAM REPORT Name: REINA ANDERS ALAN Room #: DEP Nayely#: [id number] ������������������ Admission: 11/05/18 ������������������ Attend Phys: Discharge: 11/05/18 ������������������ Date of : 61 Report #: [id number] ����������������������������������������������������������������� [id number] THIS REPORT FOR: //name// [facility] ED Test Date: 2018-11-05 Test Time: 14:54:03 Pat Name: REINA ANDERS Department: Room: 170 Gender: M Self Storage Manager: LILLIAM : 1965 Requested By: Gopi Cisneros Order Number: [id number] MD: Anthony Campbell Measurements Intervals [place] Rate: 125 P: MA: QRS: 99 QRSD: 107 T: -16 QT: 325 QTc: 469 Interpretive Statements Atrial fibrillation Borderline right axis deviation Nonspecific ST and T wave abnormality Baseline wander in lead(s) V1,V4 Compared to ECG 03/17/2007 10:28:03 ST and T wave abnormality is now present Sinus rhythm no longer present Electronically Signed On 11-05-2018 19:19:04 CDT by Anthony Campbell [email or web address] ��������������������������������������������� <ELECTRONICALLY SIGNED> ���������������������������������������� By: Anthony Campbell MD, [facility] ��������������������������������������������� 11/05/18 1919 1454 1454 Anthony Campbell MD, [facility] /EPI
== END 2018-11-05 18:42 | disposition short-term general hospital (02) ==
LOC: ER 14:15 → EROBS 15:37 → ER 18:42
PROVIDERS: Emergency Medicine
DX: T80.89XA Other complications following infusion, transfusion and therapeutic injection, initial encounter (principal); I48.2 Chronic atrial fibrillation; E80.6 Other disorders of bilirubin metabolism; E88.09 Other disorders of plasma-protein metabolism, not elsewhere classified; N39.0 Urinary tract infection, site not specified; N20.0 Calculus of kidney; E87.2 Acidosis; R41.82 Altered mental status, unspecified; N17.9 Acute kidney failure, unspecified; F17.210 Nicotine dependence, cigarettes, uncomplicated; E11.649 Type 2 diabetes mellitus with hypoglycemia without coma; I10 Essential (primary) hypertension; E66.01 Morbid (severe) obesity due to excess calories; Z68.29 Body mass index [BMI] 29.0-29.9, adult; Y84.9 Medical procedure, unspecified as the cause of abnormal reaction of the patient, or of later complication, without mention of misadventure at the time of the procedure; Y92.89 Other specified places as the place of occurrence of the external cause